=== PATIENT | male | born 1980 | race Caucasian/White ===

== ENCOUNTER 2020-08-25 10:20 | Outpatient (CLI) | payer OTHER, SELFPAY ==
[2020-08-25 10:53] LABS: Basophils % 0.6 %; Eosinophils # 0.1 10^3/uL (0.0-0.8); Eosinophils % 2.6 %; Hematocrit 42.5 % (42.0-52.0); Lymphocytes % 38.1 %; Mean Corpuscular HGB Conc 32.9 g/dL (30.0-36.0); Mean Corpuscular Hemoglobin 31.1 pg (28.0-34.0); Mean Corpuscular Volume 94.4 fL (80-94); Mean Platelet Volume 9.6 fL (7.4-10.4); Monocytes # 0.4 10^3/uL (0.2-0.9); Monocytes % 7.9 %; Neutrophils # 2.69 10^3/uL (1.8-7.7); Neutrophils % 50.4 %; Nucleated Red Blood Cells % 0 %; Platelet Count 258 10^3/cmm (130-400); Red Cell Distribution Width 12.2 % (12.1-15.1); White Blood Count 5.3 10^3/uL (4.0-10.0)
[2020-08-25 11:19] LABS: Alanine Aminotransferase 32 U/L (0-41); Albumin Level 4.4 g/dL (3.5-5.2); Alkaline Phosphatase 96 IU/L (40-130); Anion Gap 11.1 (5-19); Aspartate Amino Transferase 24 U/L (0-40); Blood Urea Nitrogen 19 mg/dL (6-20); Calcium 9.1 mg/dL (8.5-10.5); Carbon Dioxide 30 mmol/L (22-29); Chloride 101 mmol/L (98-107); Globulin 2.9 g/dL (1.3-4.6); Glomerular Filtration Rate 93.5 mL/min (90-130); Glucose 105 mg/dL (65-115); Osmolality Calculated 289 mOsm/kg (285-295); Potassium 4.1 mmol/L (3.5-5.1); Sodium 138 mmol/L (136-145); Testosterone Total 388.7 ng/dL (249-836); Thyroid Stimulating Hormone 0.79 uIU/mL (0.27-4.20); Total Bilirubin 0.4 mg/dL (0.15-1.2); Total Protein 7.3 g/dL (6.6-8.7)
[2020-08-30 01:34] LABS: Testosterone, Free 68.2 pg/mL (46.0-224.0)
== END 2020-08-25 10:21 | disposition home or self-care (01) ==
LOC: LAB 10:23
PROVIDERS: Family Provider Internal Medicine; PCP Internal Medicine; Visit Provider Internal Medicine
DX: R63.5 Abnormal weight gain (principal); R53.83 Other fatigue
CPT/HCPCS: 80053; 84402; 84403; 84439; 84443; 85025

== ENCOUNTER 2020-08-28 06:53 | Outpatient (CLI) | payer OTHER, SELFPAY ==
--- NOTE | 2020-08-28 07:10 | MR_ITS ---
WS: [id number] MRI BRAIN WITHOUT CONTRAST HISTORY: ARACHNOID CYST COMPARISON: 08/26/2019 TECHNIQUE: Diffusion imaging, multiplanar T1, T2 and FLAIR imaging obtained. No evidence for acute infarct or hemorrhage. Lorenzo-white matter differentiation is normal. No remote or acute infarcts are volume loss. Large retrocerebellar arachnoid cyst is again identified without increase in size. Cyst extends over a length of 5.1 cm and anterior posterior by 2.5 cm. Bulbous transverse diameter of 3.4 cm. There is slight mass effect upon the cerebellum but no inferior displacement of the tonsils or edema. No signa l abnormalities. No hydrocephalus. No inferior displacement of cerebellar tonsils. The sella turcica and pituitary gland are unremarkabl e. Dural venous sinuses and [place] demonstrate no abnormality on this unenhanced studies. Paranasal sinuses: Small mucous retention cysts in the floors of the maxillary sinuses. No air-fluid levels. Mastoid air cells: Normal. Calvarium and scalp: Intact. MR/MR head wo con* [id number] IMPRESSION: 1. Stable large retrocerebellar arachnoid cyst since 08/26/2019. 2. No acute infarcts or masses.
== END 2020-08-28 06:54 | disposition home or self-care (01) ==
LOC: RADSHAW 06:54
PROVIDERS: Family Provider Internal Medicine; PCP Internal Medicine; Visit Provider Internal Medicine
DX: G93.0 Cerebral cysts (principal)
CPT/HCPCS: 70551

== ENCOUNTER 2022-06-10 13:28 | Outpatient (CLI) | payer OTHER, SELFPAY ==
--- NOTE | 2022-06-10 | XR_ITS ---
WS: [id number] XR KUB [id number] REASON FOR EXAM: RECURRENT NEPHROLITHIASIS FINDINGS: No urinary tract calculi are identified. No other abnormality of the abdomen or pelvis is identified. XR/XR KUB [id number] IMPRESSION: No urinary tract calculi identified.
== END 2022-06-10 13:29 | disposition home or self-care (01) ==
PROVIDERS: PCP Internal Medicine; Visit Provider Internal Medicine
DX: N20.0 Calculus of kidney (principal)
CPT/HCPCS: 74018

== ENCOUNTER 2023-07-08 15:57 | Outpatient (CLI) | payer OTHER, SELFPAY ==
--- NOTE | 2023-07-08 16:04 | XRR_ITS ---
PROCEDURE INFORMATION: Exam: XR Left Foot Exam date and time: 07/08/2023 4:11 PM Age: 43 years old Clinical indication: Pain; Foot and toes; Patient HX: Patient caught 5th toe (left) on mats 1 day ago; Additional info: Pain in left toe/foot TECHNIQUE: Imaging protocol: Radiologic exam of the left foot. Views: 3 or more views. COMPARISON: No relevant prior studies available. FINDINGS: Bones/joints: No acute fracture or other acute osseous abnormality. Osseous structures of the 5th toe appear intact. No acute joint abnormality demonstrated. Soft tissues: The soft tissues are unremarkable as demonstrated. XR/XR foot LT min 3V* [id number] IMPRESSION: No acute fracture demonstrated.
== END 2023-07-08 15:58 | disposition home or self-care (01) ==
LOC: RAD 16:01
PROVIDERS: PCP Internal Medicine; Visit Provider Internal Medicine
DX: M79.675 Pain in left toe(s) (principal); S99.922A Unspecified injury of left foot, initial encounter; W22.09XA Striking against other stationary object, initial encounter
CPT/HCPCS: 73630

== ENCOUNTER 2025-04-11 09:26 | Outpatient (CLI) | payer OTHER, SELFPAY ==
--- NOTE | 2025-04-11 09:37 | XR_ITS ---
WS: [id number] RIGHT SHOULDER: 3 VIEW(S) TECHNIQUE: Internal and external rotation with Y view. HISTORY: PAIN IN R SHOULDER COMPARISON: None available. No acute fracture identified. There is mild loss of cortex involving the distal clavicle and also of the adjacent acromion. There is no separation of the AC joint or soft tissue mass. The remaining shoulder is intact. Visualized RIGHT upper lung is clear. XR/XR shoulder RT min 2V* [id number] IMPRESSION: Mild changes of distal clavicular osteolysis. Mild loss of the distal clavicula r subchondral bone plate. Typically these findings are usually posttraumatic or related to repetitive trauma excess load to the AC joint. Differential includes septic AC joint and early changes of rheumatoid arthritis .
== END 2025-04-11 09:27 | disposition home or self-care (01) ==
PROVIDERS: PCP Internal Medicine; Visit Provider Internal Medicine
DX: M89.511 Osteolysis, right shoulder (principal); M06.9 Rheumatoid arthritis, unspecified
CPT/HCPCS: 73030

== ENCOUNTER 2025-04-18 11:09 | Outpatient (CLI) | payer OTHER, SELFPAY ==
[2025-04-18 12:11] LABS: Hematocrit 42.7 % (37-53); Hemoglobin 14.40 g/dL (11.27-16.99); Mean Corpuscular HGB Conc 33.7 g/dL (30-55); Mean Corpuscular Hemoglobin 30.8 pg (27-33); Mean Corpuscular Volume 91.2 fl (82-101); Nucleated Red Blood Cells % 0 %; Platelet Count 270 10^3/cmm (157-399); Red Blood Count 4.68 10^6/uL (3.85-5.65); White Blood Count 5.62 10^3/uL (3.29-11.43)
[2025-04-18 12:33] LABS: Alanine Aminotransferase 34 U/L (0-41); Albumin Level 4.3 g/dL (3.5-5.2); Alkaline Phosphatase 112 U/L (40-130); Anion Gap 11.5 (5-19); Aspartate Amino Transferase 17 U/L (0-40); Blood Urea Nitrogen 23 mg/dL (6-20); Calcium 9.2 mg/dL (8.5-10.5); Carbon Dioxide 27 mmol/L (22-29); Chloride 104 mmol/L (98-107); Globulin 2.7 g/dL (1.3-4.6); Glucose 92 mg/dL (65-115); Osmolality Calculated 289 mOsm/kg (285-295); Potassium 4.5 mmol/L (3.5-5.1); Sodium 138 mmol/L (136-145); Total Protein 7.0 g/dL (6.6-8.7)
== END 2025-04-18 11:10 | disposition home or self-care (01) ==
PROVIDERS: PCP Internal Medicine; Visit Provider Internal Medicine
DX: M25.511 Pain in right shoulder (principal)
CPT/HCPCS: 36415; 80053; 85025; 85651; 86140; 86431

== ENCOUNTER 2025-06-15 14:41 | Outpatient (CLI) | payer OTHER, SELFPAY ==
--- NOTE | 2025-06-15 15:15 | MR_ITS ---
WS: [id number] MRI RIGHT SHOULDER HISTORY: AC joint injury COMPARISON: 04/11/2025 TECHNIQUE: Multiplanar sequences of the shoulder joint are submitted. Moderate AC joint inflammatory changes. There is marked circumferential synovial thickening and increased T2 signal in the soft tissues. Increased edema in the distal clavicle. Loss of the normal cortical surface of the distal clavicle corresponds to the finding seen on the recent radiograph. No subacromial or subdeltoid bursal fluid. No subacromial impingement. No os acromion. Biceps tendon remains in the bicipital groove. Muscles of the rotator cuff are intact. There is no edema or atrophy. Mild tendinopathy in the distal subscapularis tendon. No tendon tears. No joint effusion. Increased T2 signal in the posterior labrum. There does appear to be a small labral tear. Abnormal signal also in the anterior labrum. There is a globular configuration of the labrum and increased signal. Suspect anterior labral tear also. Superior labrum appears intact. Inferior labrum unremarkable. MR/MR shoulder RT wo con* [id number] IMPRESSION: 1. There is marked synovial thickening surrounding the AC joint with mild oste olysis of the distal clavicle and edema. No osteophytes. Small amount of fluid in the AC joint with marrow edema in the distal clavicle and the acromion. 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 This can be related to stress and overuse. Often seen with weightlifters or other repetitive type act ivities. 2. No rotator cuff tear. 3. Mild tendinopathy in the distal subscapularis tendon. 4. Suspect very small tears in the anterior and posterior labrum.
== END 2025-06-15 14:42 | disposition home or self-care (01) ==
LOC: RAD 14:42
PROVIDERS: PCP Internal Medicine; Visit Provider Student in an Organized Health Care Education/Training Program
DX: S43.51XA Sprain of right acromioclavicular joint, initial encounter (principal); X58.XXXA Exposure to other specified factors, initial encounter
CPT/HCPCS: 73221

== ENCOUNTER → 2025-07-29 11:13 | Outpatient (BNVA) | payer OTHER, SELFPAY | PROVIDERS: PCP Internal Medicine; Visit Provider Student in an Organized Health Care Education/Training Program | DX: M89.511 Osteolysis, right shoulder (principal); S43.51XA Sprain of right acromioclavicular joint, initial encounter; M75.81 Other shoulder lesions, right shoulder; Z71.89 Other specified counseling; X58.XXXA Exposure to other specified factors, initial encounter | CPT/HCPCS: 77002 ==